=== PATIENT | female | born 1960 | race African-American/Black ===

== ENCOUNTER 2016-11-23 10:14 | Emergency (ER) | payer MEDICAID ==
[~2016-11-23] VITALS: Ht 152.4 cm; Wt 86.6 kg
[~2016-11-23 10:14] MED LIST: ACETAMINOPHEN-1 EAC1 ORAL; ALBUTEROL SULF8.5 GM INH; AZITHROMYCIN250 MG ORAL; BENADRYL25 MG ORAL; CILOXAN 0.3% O1 DROP LEFT EYE; GUAIFENESIN-CO118 M1 ORAL; IBUPROFEN600 MG ORAL; IBUPROFEN600 MG PO; IMDUR60 MG ORAL; NITROGLYCERIN0.4 MG SL; NORCO 5-325 TA1 EACH ORAL; NORCO 5-325 TA1 EACH PO; PREDNISONE20 MG ORAL; PROCARDIA10 MG ORAL; PROMETHAZINE-C118 M1 ORAL; TENORMIN50 MG ORAL; [UNRECOGNIZED DRUG - REMARK]
[2016-11-23] MEDS ORDERED: ACETAMINOPHEN-1 EAC1 ORAL (10:56)
[2016-11-23] MEDS ORDERED: FLONASE ALLERG9.9 ML NS (10:56)
[2016-11-23] MEDS ORDERED: IBUPROFEN800 MG ORAL (10:56)
[2016-11-23] MEDS ORDERED: Ketorolac 60mg Inj IM ONE (11:00)
[2016-11-23 11:05] VITALS: BP 141/99
--- NOTE | 2016-11-23 11:28 | Emergency Room Report ---
History of Present Illness General Chief Complaint: Upper Respiratory Illness Source: Patient Present Illness HPI 56YOF walk-in patient with 1 week of myalgias, productive cough, sore throat. + sick grandchild. +smoker. No asthma, COPD. Denies fever/chills Denies known PMHx. Allergies: Coded Allergies: NO KNOWN DRUG ALLERGIES (Verified Allergy, 02/12/13) Patient History Past Medical History: none Past Surgical History: none Pertinent Family History: none Social History: Reports: smoking Now: No Immunizations: UTD Reviewed Nursing Documentation: PMH: Agreed, PSxH: Agreed Nursing Documentation-PMH Hx Cardiac Problems: Yes Hx Hypertension: Yes Review of Systems All Other Systems: negative except mentioned in HPI Physical Exam Vital Signs Date Time Temp Pulse Resp B/P Pulse Ox O2 Delivery O2 Flow Rate FiO2 11/23/16 10:18 98.4 85 17 141/99 100 Room Air Sp02 EP Interpretation: reviewed, normal General Appearance: normal inspection, well appearing, no apparent distress, alert, GCS 15, non-toxic Head: normocephalic, atraumatic Eyes: bilateral eye EOMI, bilateral eye PERRL ENT: normal ENT inspection, hearing grossly normal, normal voice Neck: normal inspection, full range of motion, supple, no bony tend Respiratory: normal inspection, lungs clear, normal breath sounds, no respiratory distress, no retraction, no wheezing Cardiovascular #1: regular rate, rhythm, no edema Genitourinary: no CVA tenderness Musculoskeletal: normal inspection, back normal, normal range of motion, Kamran' s Sign negative Neurologic: normal inspection, alert, oriented x3, responsive, seamer operator III-XII nml as tested, motor strength/tone normal, speech normal Psychiatric: normal inspection, judgement/insight normal, mood/affect normal Skin: normal inspection, normal color, no rash Lymphatic: normal inspection Medical Decision Making Diagnostic Impression: Primary Impression: Upper respiratory infection Qualified Codes: J06.9 - Acute upper respiratory infection, unspecified; B97.89 - Other viral agents as the cause of diseases classified elsewhere ER Course 56YOF with 1 week body aches, fever, sore throat, dry cough No obvious source of bacterial infection in oropharynx, ears, lungs, skin, abdomen on exam VSS Low suspicion for PNA or other acute bacterial process PMD followup closely DC home Understands to return for worsening symptoms - Use T#3 as needed for cough, body aches - Ibuprofen for body aches - Flonase PRN Last Vital Signs Date Time Temp Pulse Resp B/P Pulse Ox O2 Delivery O2 Flow Rate FiO2 11/23/16 10:26 85 17 Room Air 11/23/16 10:18 98.4 141/99 100 Status: improved Disposition: HOME, SELF-CARE Condition: Improved Scripts Ibuprofen* (MOTRIN*) 800 Mg Tablet 800 MG ORAL THREE TIMES A DAY for For Pain for 7 Days, #30 TAB 0 Refills Prov: CHRISTOPHER JIN M.D. 11/23/16 Acetaminophen With Codeine (T#3) (TYLENOL #3 TAB*) Y Tab 1 TAB ORAL QHS Y for pain, cough for 7 Days, #30 TAB Prov: CHRISTOPHER JIN M.D. 11/23/16 Fluticasone Propionate (Flonase Allergy Relief) 9.9 Ml [place].susp 9.9 ML NS BID for 7 Days, #1 UNIT Prov: CHRISTOPHER JIN M.D. 11/23/16 Patient Instructions: Upper Respiratory Infection, Adult Additional Instructions: - Take Tylenol #3 as needed at night for cough, body aches - Take Ibuprofen up to 3x a day for body aches, sore throat - Flonase nasal spray as needed for nasal congestion CHRISTOPHER JIN M.D. Nov 23, 2016 11:28
== END 2016-11-23 11:05 | disposition home or self-care (01) ==
LOC: EMR 10:56
DX: J06.9 Acute upper respiratory infection, unspecified (principal); I10 Essential (primary) hypertension; F17.200 Nicotine dependence, unspecified, uncomplicated
CPT/HCPCS: 96372; 99284

== ENCOUNTER 2018-05-07 16:32 | Emergency (ER) | payer MEDICAID ==
[~2018-05-07] VITALS: Ht 152.4 cm; Wt 73.9 kg
[~2018-05-07 16:32] MED LIST changes: +FLONASE ALLERG9.9 ML NS; +IBUPROFEN800 MG ORAL
[2018-05-07 17:07] VITALS: BP 152/99
[2018-05-07] MEDS ORDERED: Morphine Sulfate 4mg/ml Inj (IV/IM USE ONLY) IVP ONE (17:15)
[2018-05-07] MEDS ORDERED: Lidocaine 2% Visc 15ml soln ORAL ONE (17:15)
[2018-05-07] MEDS ORDERED: Dicyclomine HCl 10mg/5ml oral soln ORAL ONE (17:15)
[2018-05-07] MEDS ORDERED: Mylanta II UD 30ml ORAL ONE (17:15)
[2018-05-07 17:23] LABS: BASOPHILS % (AUTO) 1.8 % (0.0-2.0); EOSINOPHILS % (AUTO) 2.8 % (0.0-3.0); HEMATOCRIT 42.8 % (37.0-47.0); HEMOGLOBIN 14.5 G/DL (12.0-16.0); LYMPHOCYTES % (AUTO) 42.9 % (20.0-45.0); MEAN CORPUSCULAR VOLUME 93 FL (80-99); NEUTROPHILS % (AUTO) 46.5 % (45.0-75.0); PLATELET COUNT 332 K/UL (150-450); RED CELL DISTRIBUTION WIDTH 13.6 % (11.6-14.8); WHITE BLOOD COUNT 5.7 K/UL (4.8-10.8)
[2018-05-07 17:26] LABS: APPEARANCE,URINE SLIGHTLY CLOUDY; BILIRUBIN, URINE NEGATIVE (NEGATIVE); COLOR,URINE PALE YELLOW; GLUCOSE, URINE (UA) NEGATIVE (NEGATIVE); KETONES,URINE NEGATIVE (NEGATIVE); LEUKOCYTE ESTERASE ,URINE 2+ (NEGATIVE); NITRITE,URINE NEGATIVE (NEGATIVE); PH,URINE 6 (4.5-8.0); PROTEIN,URINE NEGATIVE (NEGATIVE); UROBILINOGEN,URINE NORMAL MG/DL (0.0-1.0)
[2018-05-07 17:30] LABS: ANION GAP 11 mmol/L (5-15); BLOOD UREA NITROGEN 19 mg/dL (7-18); CALCIUM 8.8 MG/DL (8.5-10.1); CARBON DIOXIDE 24 MMOL/L (21-32); CHLORIDE 105 MMOL/L (98-107); CREATININE 0.8 MG/DL (0.55-1.30); POTASSIUM 3.5 MMOL/L (3.5-5.1); SODIUM 140 MMOL/L (136-145)
[2018-05-07 17:34] LABS: ALANINE AMINOTRANSFERASE 29 U/L (12-78); ALBUMIN 3.5 G/DL (3.4-5.0); ALBUMIN/GLOBULIN RATIO 0.8 (1.0-2.7); ALKALINE PHOSPHATASE 89 U/L (46-116); ASPARTATE AMINO TRANSFERASE 16 U/L (15-37); BILIRUBIN,TOTAL 0.2 MG/DL (0.2-1.0)
[2018-05-07] MEDS ORDERED: Isovue-300 100ml vial INJ PRN (18:30)
[2018-05-07 18:55] VITALS: BP 148/89
[2018-05-07 19:41] VITALS: BP 142/72
[2018-05-07] MEDS ORDERED: MAGNESIUM CITR296 M1 PO (19:43)
[2018-05-07] MEDS ORDERED: TRAMADOL HCL50 MG ORAL (19:43)
[2018-05-07 19:51] VITALS: BP 142/72
--- NOTE | 2018-05-08 00:01 | Emergency Room Report ---
History of Present Illness General Chief Complaint: Abdominal Pain Source: Patient, Medical Record Present Illness Allergies: Coded Allergies: NO KNOWN DRUG ALLERGIES (Verified Allergy, Unknown, 05/07/18) Patient History Last Menstrual Period: 9 years ago Nursing Documentation-[facility] Past Medical History: No History, Except For Hx Cardiac Problems: Yes - stents x3 Hx Hypertension: Yes Physical Exam Vital Signs Date Time Temp Pulse Resp B/P (MAP) Pulse Ox O2 Delivery O2 Flow Rate FiO2 05/07/18 16:43 98.2 88 16 159/106 100 Room Air Medical Decision Making Diagnostic Impression: Primary Impression: Diverticulosis Additional Impression: Abdominal pain Last Vital Signs Date Time Temp Pulse Resp B/P (MAP) Pulse Ox O2 Delivery O2 Flow Rate FiO2 05/07/18 19:41 98.2 87 18 142/72 100 Room Air Disposition: HOME, SELF-CARE Condition: Stable Scripts Magnesium Citrate (MAGNESIUM CITRATE) 296 Ml Solution 150 ML PO DAILY for 2 Days, #296 ML Prov: Lalo Teran MD 05/07/18 Tramadol Hcl* (ULTRAM*) 50 Mg Tablet 50 MG ORAL Q6H PRN for For Pain, #30 TAB 0 Refills Prov: Lalo Teran MD 05/07/18 Departure Forms: Return to Work Return to Work Date: May 09, 2018 Work Restrictions: None Patient Instructions: Diverticulosis Lalo Teran MD May 08, 2018 00:01
--- NOTE | 2018-05-08 09:19 | Diagnostic Imaging Report ---
Clinical Indication: Medial upper abdominal pain, 8 out of 10 since 05/06/2018. Black stool Technique: No oral contrast utilized, per emergency room physician request IV administration nonionic contrast. Venous phase spiral acquisition obtained through the abdomen and pelvis. Multiplanar reconstructions were generated. Total dose length product 928.35 mGycm. CTDIvol(s) 17.73 mGy. Dose reduction achieved using automated exposure control Comparison: none Findings: There is colonic diverticulosis. No evidence of diverticulitis. The appendix is normal. No small bowel distention. No free or loculated intraperitoneal gas or fluid is evident. The distal esophagus, stomach, duodenum are unremarkable. The liver, gallbladder, bile ducts are all unremarkable. The pancreas demonstrates some calcifications. The spleen, adrenals, kidneys are unremarkable. No retroperitoneal or mesenteric mass or adenopathy. No pelvic mass or adenopathy. Uterus and adnexal structures appear unremarkable. The bladder is unremarkable. The included lung bases demonstrate posterior dependent atelectatic changes. There is minimal pericardial thickening versus fluid. The bones are unremarkable except for minimal degenerative disc disease. Minimal atelectatic changes are seen at the lung bases. A small subpleural bleb is seen on the left. Impression: No acute abnormality Colonic diverticulosis. No evidence of diverticulitis Pancreatic calcifications, may indicate chronic calcifying pancreatitis Posterior pulmonary dependent atelectasis, small left lung subpleural bleb, minimal disc degeneration incidentally noted This agrees with the preliminary interpretation provided overnight by [facility]erad[facility]. The CT scanner at [facility] is accredited by the [employer] and the scans are performed using protocols designed to limit radiation exposure to as low as reasonably achievable to attain images of sufficient resolution adequate for diagnostic evaluation.
--- NOTE | 2018-05-08 10:16 | Diagnostic Imaging Report ---
Indication: Abdominal pain Technique: Supine view of the abdomen Comparison: none Findings: The bowel gas pattern is unremarkable. No unusual masses or calcifications. A buttock injection granuloma is noted on the left. Impression: No acute process
== END 2018-05-07 19:50 | disposition home or self-care (01) ==
LOC: EMR 16:54
DX: K57.90 Diverticulosis of intestine, part unspecified, without perforation or abscess without bleeding (principal); I10 Essential (primary) hypertension; Z86.79 Personal history of other diseases of the circulatory system; Z98.61 Coronary angioplasty status
CPT/HCPCS: 36415; 74018; 74177; 80053; 81003; 83690; 85025; 96361; 96374; 96375; 99284; J2270; J2405; Q9967; S0028

== ENCOUNTER 2018-06-25 10:10 | Emergency (ER) | payer MEDICAID ==
[~2018-06-25] VITALS: Ht 152.4 cm; Wt 72.6 kg
[~2018-06-25 10:10] MED LIST changes: +MAGNESIUM CITR296 M1 PO; +TRAMADOL HCL50 MG ORAL
--- NOTE | 2018-06-25 10:24 | NUR ---
ED Nurse Note: pt is aox 4 pt is ambulating with a steady gait. pt came from home c/o pain on her right hip radiating down to feet. per pt pain 01/25. pt skin is intact, show no signs of distress, pt denies taking pain medication today. per pt she soaked her legs in her warm water and epsone salt. pt denies falls. says pain precipated on sunday06/21/18
[2018-06-25 10:30] VITALS: BP 138/95
[2018-06-25] MEDS ORDERED: Ketorolac 60mg Inj IM ONE (10:30)
[2018-06-25] MEDS ORDERED: Cyclobenzaprine 10mg Tab ORAL ONE (10:30)
[2018-06-25] MEDS ORDERED: Norco 5mg/325mg tab ORAL ONE (11:30)
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
[2018-06-25] MEDS ORDERED: CYCLOBENZAPRINE10 MG ORAL (12:35)
[2018-06-25] MEDS ORDERED: NORCO 5-325 TA1 EACH ORAL (12:35)
[2018-06-25] MEDS ORDERED: LIDODERM700 M1 TOPIC (12:35)
[2018-06-25] MEDS ORDERED: IBUPROFEN600 MG ORAL (12:35)
[2018-06-25 12:40] VITALS: BP 138/95
--- NOTE | 2018-06-25 12:40 | NUR ---
ED Nurse Note: Pt is DC per MD order. pt has left with all belongings. pt as given dc and prescription intrusctions. patient verbalized understanding. pt vss and has been reported to MD. pt is ao x 4. pt is able to abmulate with steady gait. ID band removed prior to Dc.
== END 2018-06-25 12:40 | disposition home or self-care (01) ==
LOC: EMR 10:35
DX: M54.16 Radiculopathy, lumbar region (principal); I10 Essential (primary) hypertension; I25.10 Atherosclerotic heart disease of native coronary artery without angina pectoris
CPT/HCPCS: 96372; 99283

== ENCOUNTER 2019-05-11 09:56 | Emergency (ER) | payer BC, MEDICARE, MEDICAID ==
[~2019-05-11] VITALS: Ht 152.4 cm; Wt 79.8 kg
[~2019-05-11 09:56] MED LIST changes: +CYCLOBENZAPRINE10 MG ORAL; +LIDODERM700 M1 TOPIC
[2019-05-11 10:08] VITALS: BP 135/90
[2019-05-11 10:54] LABS: APPEARANCE,URINE CLEAR; BILIRUBIN, URINE NEGATIVE (NEGATIVE); COLOR,URINE PALE YELLOW; GLUCOSE, URINE (UA) NEGATIVE (NEGATIVE); KETONES,URINE NEGATIVE (NEGATIVE); LEUKOCYTE ESTERASE ,URINE NEGATIVE (NEGATIVE); NITRITE,URINE NEGATIVE (NEGATIVE); PH,URINE 6 (4.5-8.0); PROTEIN,URINE 1+ (NEGATIVE); UROBILINOGEN,URINE NORMAL MG/DL (0.0-1.0)
[2019-05-11 11:26] LABS: BASOPHILS % (AUTO) 0.7 % (0.0-2.0); EOSINOPHILS % (AUTO) 1.3 % (0.0-3.0); HEMATOCRIT 43.7 % (37.0-47.0); HEMOGLOBIN 14.2 G/DL (12.0-16.0); LYMPHOCYTES % (AUTO) 36.2 % (20.0-45.0); MEAN CORPUSCULAR VOLUME 93 FL (80-99); MONOCYTES % (AUTO) 9.4 % (1.0-10.0); NEUTROPHILS % (AUTO) 52.4 % (45.0-75.0); PLATELET COUNT 358 K/UL (150-450); RED BLOOD COUNT 4.68 M/UL (4.20-5.40); RED CELL DISTRIBUTION WIDTH 14.5 % (11.6-14.8); WHITE BLOOD COUNT 4.6 K/UL (4.8-10.8)
[2019-05-11 11:38] LABS: ANION GAP 3 mmol/L (5-15); BLOOD UREA NITROGEN 21 mg/dL (7-18); CALCIUM 8.9 MG/DL (8.5-10.1); CARBON DIOXIDE 29 MMOL/L (21-32); CHLORIDE 106 MMOL/L (98-107); CREATININE 0.8 MG/DL (0.55-1.30); POTASSIUM 3.5 MMOL/L (3.5-5.1); SODIUM 138 MMOL/L (136-145)
[2019-05-11 11:43] LABS: ALANINE AMINOTRANSFERASE 24 U/L (12-78); ALBUMIN 3.7 G/DL (3.4-5.0); ALBUMIN/GLOBULIN RATIO 0.9 (1.0-2.7); ALKALINE PHOSPHATASE 73 U/L (46-116); ASPARTATE AMINO TRANSFERASE 16 U/L (15-37); BILIRUBIN,TOTAL 0.3 MG/DL (0.2-1.0); CREATINE KINASE 131 U/L (26-308)
--- NOTE | 2019-05-11 12:03 | Diagnostic Imaging Report ---
EXAM: XR Chest, 1 View CLINICAL HISTORY: CP TECHNIQUE: Frontal view of the chest. COMPARISON: Chest radiograph on 05/25/2015 FINDINGS: Hardware: None. Lungs/pleura: Normal. No focal consolidation. No pleural effusion or pneumothorax. Heart/mediastinum: Stable enlargement of the cardiac silhouette. Atherosclerotic calcifications of the aorta. Soft tissues: Unremarkable. Bones: No acute fracture. Upper abdomen: Normal. IMPRESSION: No acute disease identified.
[2019-05-11] MEDS ORDERED: Ketorolac 30mg Inj IV ONE (12:45)
--- NOTE | 2019-05-11 13:58 | Emergency Room Report ---
History of Present Illness General Chief Complaint: General Complaint Source: Patient Present Illness HPI This patient complains of generalized body aches, sore throat, headache and fatigue for the past 4 days. She has subjective fever and chills. She denies cough or congestion. She denies abdominal pain. She has no other complaints. Allergies: Coded Allergies: NO KNOWN DRUG ALLERGIES (Verified Allergy, Unknown, 05/07/18) Patient History Past Medical History: see triage record, HTN, CAD, other - Back pain Past Surgical History: none Social History: Denies: smoking, alcohol use, drug use Now: No Reviewed Nursing Documentation: PMH: Agreed; PSxH: Agreed Nursing Documentation-PMH Past Medical History: No History, Except For Hx Cardiac Problems: Yes - stents x3 Hx Hypertension: Yes Review of Systems All Other Systems: negative except mentioned in HPI Physical Exam Vital Signs Date Time Temp Pulse Resp B/P (MAP) Pulse Ox O2 Delivery O2 Flow Rate FiO2 05/11/19 10:02 98.6 81 16 138/87 (104) 98 Room Air Sp02 EP Interpretation: reviewed, normal General Appearance: no apparent distress, alert, GCS 15, non-toxic Head: normocephalic, atraumatic Eyes: bilateral eye normal inspection, bilateral eye PERRL ENT: hearing grossly normal, no angioedema, normal voice, other - Unable to fully view O/P, no obvious abnl. Neck: full range of motion, supple/symm/no masses Respiratory: chest non-tender, lungs clear, normal breath sounds, no respiratory distress, no retraction, no accessory muscle use, speaking full sentences Cardiovascular #1: regular rate, rhythm, no edema Gastrointestinal: normal bowel sounds, non tender, soft, non-distended, no guarding, no rebound Rectal: deferred Musculoskeletal: back normal, normal range of motion, gait/station normal, non- tender Neurologic: alert, motor strength/tone normal, oriented x3, sensory intact, responsive, speech normal Psychiatric: judgement/insight normal, memory normal, mood/affect normal, no suicidal/homicidal ideation Skin: no rash, normal color Medical Decision Making Diagnostic Impression: Primary Impression: Viral syndrome ER Course This patient has a clinical presentation consistent with viral syndrome. Symptoms are nonspecific. There are no red flags on physical exam that would make me concerned for serious illness. This includes no evidence of meningitis , intra-abdominal process that would make me concerned for appendicitis or diverticulitis or other surgical or emergency etiology. Overall, this patient' s presentation is benign and the patient is nontoxic. Laboratory workup is negative. There is no evidence of an emergency medical condition. The patient is given close return precautions and followup instructions. Laboratory Tests Test 05/11/19 10:07 05/11/19 11:00 Urine Color Pale yellow Urine Appearance Clear Urine pH 6 (4.5-8.0) Urine Specific [place] 1.015 (1.005-1.035) Urine Protein 1+ (NEGATIVE) H Urine Glucose (UA) Negative (NEGATIVE) Urine Ketones Negative (NEGATIVE) Urine Blood 3+ (NEGATIVE) H Urine Nitrite Negative (NEGATIVE) Urine Bilirubin Negative (NEGATIVE) Urine Urobilinogen Normal MG/DL (0.0-1.0) Urine Leukocyte Esterase Negative (NEGATIVE) Urine RBC 2-4 /HPF (0 - 2) H Urine WBC 0-2 /HPF (0 - 2) Urine Squamous Epithelial Cells Few /LPF (NONE/OCC) Urine Bacteria Few /HPF (NONE) Urine Mucus Few /LPF (NONE/OCC) H Urine Opiates Screen Negative (NEGATIVE) Urine Barbiturates Screen Negative (NEGATIVE) Phencyclidine (PCP) Screen Negative (NEGATIVE) Urine Amphetamines Screen Negative (NEGATIVE) Urine Benzodiazepines Screen Negative (NEGATIVE) Urine Cocaine Screen Negative (NEGATIVE) Urine Marijuana (THC) Screen Negative (NEGATIVE) White Blood Count 4.6 K/UL (4.8-10.8) L Red Blood Count 4.68 M/UL (4.20-5.40) Hemoglobin 14.2 G/DL (12.0-16.0) Hematocrit 43.7 % (37.0-47.0) Mean Corpuscular Volume 93 FL (80-99) Mean Corpuscular Hemoglobin 30.4 PG (27.0-31.0) Mean Corpuscular Hemoglobin Concent 32.5 G/DL (32.0-36.0) Red Cell Distribution Width 14.5 % (11.6-14.8) Platelet Count 358 K/UL (150-450) Mean Platelet Volume 4.9 FL (6.5-10.1) L Neutrophils (%) (Auto) 52.4 % (45.0-75.0) Lymphocytes (%) (Auto) 36.2 % (20.0-45.0) Monocytes (%) (Auto) 9.4 % (1.0-10.0) Eosinophils (%) (Auto) 1.3 % (0.0-3.0) Basophils (%) (Auto) 0.7 % (0.0-2.0) Sodium Level 138 MMOL/L (136-145) Potassium Level 3.5 MMOL/L (3.5-5.1) Chloride Level 106 MMOL/L (98-107) Carbon Dioxide Level 29 MMOL/L (21-32) Anion Gap 3 mmol/L (5-15) L Blood Urea Nitrogen 21 mg/dL (7-18) H Creatinine 0.8 MG/DL (0.55-1.30) Estimate Glomerular Filtration Rate > 60 mL/min (>60) Glucose Level 83 MG/DL (74-106) Calcium Level 8.9 MG/DL (8.5-10.1) Total Bilirubin 0.3 MG/DL (0.2-1.0) Aspartate Amino Transferase (AST) 16 U/L (15-37) Alanine Aminotransferase (ALT) 24 U/L (12-78) Alkaline Phosphatase 73 U/L (46-116) Total Creatine Kinase 131 U/L (26-308) Troponin I 0.002 ng/mL (0.000-0.056) Total Protein 7.8 G/DL (6.4-8.2) Albumin 3.7 G/DL (3.4-5.0) Globulin 4.1 g/dL Albumin/Globulin Ratio 0.9 (1.0-2.7) L EKG Diagnostic Results Rate: normal Rhythm: NSR ST Segments: no acute changes Rhythm Strip Diag. Results EP Interpretation: yes Rate: 60'd Rhythm: NSR, no PVC's, no ectopy Chest X-Ray Diagnostic Results Chest X-Ray Diagnostic Results : Chest X-Ray Ordered: Yes # of Views/Limited/Complete: 1 View Indication: Other EP Interpretation: Yes Interpretation: no consolidation, no effusion, no pneumothorax, no acute cardiopulmonary disease Impression: No acute disease Electronically Signed by: Farrah Escalera DO Last Vital Signs Date Time Temp Pulse Resp B/P (MAP) Pulse Ox O2 Delivery O2 Flow Rate FiO2 05/11/19 13:22 98.0 05/11/19 10:08 78 17 135/90 98 Room Air Status: improved Disposition: HOME, SELF-CARE Condition: Improved Referrals: NOT CHOSEN IPA/MD,REFERRING (PCP) Farrah Escalera DO May 11, 2019 13:58
[2019-05-11] MEDS ORDERED: ACETAMINOPHEN-1 EAC1 ORAL (14:13)
[2019-05-11] MEDS ORDERED: IBUPROFEN600 MG ORAL (14:13)
[2019-05-11 14:19] VITALS: BP 152/71
[2019-05-11] MEDS ORDERED: LIDODERM700 M1 TOPIC (14:20)
--- NOTE | 2019-05-12 19:24 | Cardiology Report ---
APPROVED REPORT EKG Measurement Heart [id number] Normal sinus rhythm Possible Left atrial enlargement Left axis deviation Anterior infarct, age undetermined Abnormal ECG
== END 2019-05-11 14:21 | disposition home or self-care (01) ==
LOC: EMR 10:25
DX: B34.9 Viral infection, unspecified (principal); Z95.5 Presence of coronary angioplasty implant and graft; I11.9 Hypertensive heart disease without heart failure; I25.10 Atherosclerotic heart disease of native coronary artery without angina pectoris
CPT/HCPCS: 36415; 71045; 80053; 80307; 81003; 82550; 84484; 85025; 86710; 93005; 96361; 96374; 99284; J1885; J7030